=== PATIENT | male | born 1980 | race Caucasian/White ===

== ENCOUNTER 2023-10-18 14:44 | Emergency (ER) | payer OTHER ==
[~2023-10-18] VITALS: Ht 170.2 cm; Wt 56.7 kg
[2023-10-18 14:48] VITALS: BP_SYST 117; PULSE 83; RESP 22; TEMP 98.3; O2SAT 98
[2023-10-18 16:34] LABS: BASOPHILS % (AUTO) 0.1 % (0.0-2.0); EOSINOPHILS % (AUTO) 0.2 % (0.0-4.0); HEMOGLOBIN 15.6 g/dL (14.0-18.0); LYMPHOCYTES # (AUTO) 0.7 K/uL (1.0-5.5); MEAN CORPUSCULAR HEMOGLOBIN 30 pg (27-31); MEAN CORPUSCULAR HGB CONC 34 % (32-36); MEAN CORPUSCULAR VOLUME 87 fL (79.0-98.0); MONOCYTES # (AUTO) 1.1 K/uL (0.0-1.0); MONOCYTES % (AUTO) 19.7 % (1.7-9.3); NEUTROPHILS # (AUTO) 3.7 K/uL (1.8-7.7); PLATELET COUNT (AUTO) 143 K/uL (130-430); RED BLOOD CELL COUNT(AUTO) 5.28 MIL/uL (4.2-6.2); RED CELL DISTRIBUTION WIDTH 14.1 % (9.0-15.0); WHITE BLOOD COUNT (AUTO) 5.4 K/uL (4.8-10.8)
[2023-10-18 17:17] LABS: PROTHROMBIN TIME 10.5 SECS (9.5-12.5)
[2023-10-18] MEDS ORDERED: ONDA-8 TL (17:20)
[2023-10-18] MEDS ORDERED: IBUP-1971 PO (17:20)
[2023-10-18 17:23] LABS: ALBUMIN 3.2 g/dL (3.4-4.8); BILIRUBIN,DIRECT 0.2 mg/dL (0.0-0.3); CALCIUM 8.4 mg/dL (8.4-11.0); CREATININE 1.24 mg/dL (0.55-1.30); TOTAL BILIRUBIN 0.6 mg/dL (0.0-1.0); TOTAL PROTEIN, SERUM 7.2 g/dL (6.4-8.3)
[2023-10-18 17:26] LABS: POTASSIUM 2.9 mmol/L (3.5-5.1)
[2023-10-18] MEDS: POTASSIUM CHLORIDE 20 MEQ/PKT PACKET PO ONE (17:46)
[2023-10-18 18:00] VITALS: BP_SYST 117; PULSE 83; RESP 22; TEMP 98.3; O2SAT 98
== END 2023-10-18 18:00 | disposition home or self-care (01) ==
LOC: SED 14:44
DX: R19.7 Diarrhea, unspecified (principal); R10.32 Left lower quadrant pain; E87.6 Hypokalemia; Z79.899 Other long term (current) drug therapy
CPT/HCPCS: 36415; 80048; 80076; 82150; 83605; 83690; 85025; 85610; 85730; 99284